=== PATIENT | female | born 1965 | race Two or more races ===

== ENCOUNTER → 2019-06-18 | Outpatient (CLI) | payer OTHER ==
--- NOTE | 2019-06-18 12:49 | KCIC ---
PA View CXR. Clinical indications: Tuberculosis case follow-up. Currently undergoing medication treatment for the past 1.5 months. No symptoms. COMPARISON: None available.. Findings: No acute lung infiltrate or pleural effusion or pulmonary edema or lung mass or cavitary nodule or pneumothorax is seen. The heart size, pulmonary vasculature, mediastinum and both oseas are unremarkable. The osseous structures appear intact. Impression: No acute radiographic abnormality is seen. Specifically, there are no radiographic findings indicative of active tuberculous lung disease. Electronically signed by: Jairo Bradshaw MD (06/18/2019 12:46 PM) [id number]
== END | disposition home or self-care (01) ==
LOC: KCIC 08:04
PROVIDERS: ATTEND Family Medicine
DX: A15.9 Respiratory tuberculosis unspecified (principal)
CPT/HCPCS: 71045